=== PATIENT | male | born 1955 | race Hispanic/Latino ===

== ENCOUNTER 2017-06-16 13:02 | Emergency (ER) | payer BC ==
[2017-06-16 13:07] VITALS: TEMP 98.2
--- NOTE | 2017-06-16 13:43 | C.PDOC ---
History Of Present Illness 62 y/o male with a hx of HTN, c/o pain to the left leg for a few weeks. Pain started to the foot, the calf, then to the posterior thigh. Patient notes he cannot walk more than a few steps without pain. Foot and calf pain has improved. 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 Denies swelling, bruising, redness, or color change. No numbness to the thigh or back pain. Patient is a heavy smoker and a recovering alcoholic. Patient has a hx of HTN, was on meds in the past, but has not seen a Doctor for many years. Patient BP is high measured in Triage. Time Seen by Provider: 06/16/17 13:11 Chief Complaint (Nursing): Lower Extremity Problem/Injury History/Exam Limitations: no limitations Onset/Duration Of Symptoms: Days (Few weeks) Current Symptoms Are (Timing): Still Present Severity: Mild Recent travel outside of the [place]: No Additional History Per: Patient Past Medical History Reviewed: Historical Data, Nursing Documentation, Vital Signs Vital Signs: Last Vital Signs Temp 98.2 F 06/16/17 13:06 Pulse 72 06/16/17 15:52 Resp 21 06/16/17 15:52 BP 144/102 H 06/16/17 15:52 Pulse Ox 97 06/16/17 15:52 - Medical History PMH: HTN Family History: States: Unknown Family Hx - Social History Hx Alcohol Use: No (former) Hx Substance Use: No Review Of Systems Except As Marked, All Systems Reviewed And Found Negative. Constitutional: Negative for: Other (Injury or overuse of the left leg) Musculoskeletal: Positive for: Leg Pain (Left leg). Negative for: Back Pain, Other (Left leg swelling, redness, bruising, or color change.) Neurological: Negative for: Numbness Physical Exam - Physical Exam Appears: Non-toxic, No Acute Distress Skin: Warm, Dry Head: Atraumatic, Normacephalic Chest: Symmetrical Cardiovascular: Rhythm Regular, No Murmur Respiratory: Normal Breath Sounds, No Rales, No Rhonchi, No Wheezing Gastrointestinal/Abdominal: Soft, No Tenderness Back: No Vertebral Tenderness, Straight Leg Raising (Pain with straight leg raise on the left, relieved with knee flexion.) Extremity: Normal ROM (FROM left hip and knee), Tenderness (Tenderness to the hamstring muscle of the posterior left thigh.), Capillary Refill (<2secs), No Deformity Extremity: Bilateral: Normal Color And Temperature Pulses: Left Dorsalis Pedis: Normal, Right Dorsalis Pedis: Normal Neurological/Psych: Oriented x3, Normal Speech, Normal Cognition, Normal Motor, Normal Sensation, Normal Reflexes Gait: Steady ED Course And Treatment - Laboratory Results Result Diagrams: 06/16/17 13:40 06/16/17 13:40 Lab Interpretation: Normal ECG: Interpreted By Me ECG Rhythm: Sinus Rhythm ECG Interpretation: Normal O2 Sat by Pulse Oximetry: 98 (RA) Pulse Ox Interpretation: Normal Progress Note: 3:15 BP 159/105 after Clonidine 0.1mg. Patient remains comfortable on the stretcher. Reevaluation Time: 16:52 Reassessment Condition: Improved (BP now 153/96. Patient remains asymptomatic.) Medical Decision Making Medical Decision Making: Plans: * Blood labs * EKg * Catapres * IV fluids Disposition Counseled Patient/Family Regarding: Studies Performed, Diagnosis, Need For Followup, Rx Given - Disposition Referrals: [facility] [Outside] Disposition: HOME/ ROUTINE Disposition Time: 16:52 Condition: IMPROVED Prescriptions: Lisinopril [Zestril] 10 mg PO DAILY #90 tablet traMADol [Ultram] 50 mg PO TID PRN #10 tab PRN Reason: Pain, Severe (8-10) Instructions: Musculoskeletal Pain (ED), Hypertension (ED) Forms: [employer] (Mongolian) Print Language: SURINAMESE - Clinical Impression Clinical Impression: Hamstring muscle strain, Hypertension - Scribe Statement The provider has reviewed the documentation as recorded by the Scribjulius taylor All medical record entries made by the Scribe were at my direction and personally dictated by me. I have reviewed the chart and agree that the record accurately reflects my personal performance of the history, physical exam, medical decision making, and the department course for this patient. I have also personally directed, reviewed, and agree with the discharge instructions and disposition.
[2017-06-16 13:46] LABS: BASO % 0.5 % (0.0-2.0); EOS # 0.1 K/uL (0.0-0.7); EOS % 1.1 % (0.0-4.0); HEMATOCRIT 50.4 % (35.0-51.0); LYMPH # 1.6 K/uL (1.0-4.3); LYMPH % 20.8 % (20.0-40.0); MEAN CELL VOLUME 94.6 fL (80.0-94.0); MEAN CORPUSCULAR HEMOGLOBIN 32.2 pg (27.0-31.0); MEAN PLATELET VOLUME 8.7 fL (7.2-11.7); MONO # 0.6 K/uL (0.0-0.8); MONO % 7.6 % (0.0-10.0); NRBC % 0.1 % (0.0-2.0); RED CELL DISTRIBUTION WIDTH 13.9 % (11.5-14.5); WHITE BLOOD COUNT 7.9 K/uL (4.8-10.8)
[2017-06-16 13:57] LABS: CHLORIDE 104 mmol/L (98-107)
[2017-06-16 13:58] LABS: POTASSIUM 4.6 mmol/L (3.6-5.2); SODIUM 137 mmol/L (132-148)
[2017-06-16 14:00] LABS: ALB/GLOB RATIO 1.4 (1.0-2.1); ALKALINE PHOSPHATASE 55 U/L (38-126); ALT/SGPT 30 U/L (21-72); AST/SGOT 27 U/L (17-59); BILIRUBIN,TOTAL 0.8 mg/dL (0.2-1.3); BLOOD UREA NITROGEN 20 mg/dL (9-20); CARBON DIOXIDE 24 mmol/L (22-30); GFR AFRICAN-AMERICAN > 60; GLUCOSE,RANDOM 89 mg/dL (75-110); TOTAL PROTEIN 7.3 g/dL (6.3-8.3)
[2017-06-16 17:18] VITALS: BP 153/96; PULSE 68; RESP 20; O2SAT 97
--- NOTE | 2017-06-18 12:26 | CARD ---
APPROVED REPORT EKG Measurement Heart [id number] VT [id number] [id number] <Conclusion> Normal sinus rhythm Normal ECG
== END 2017-06-16 17:17 | disposition home or self-care (01) ==
LOC: C.ER 13:02
DX: S76.812A Strain of other specified muscles, fascia and tendons at thigh level, left thigh, initial encounter (principal); X58.XXXA Exposure to other specified factors, initial encounter; I10 Essential (primary) hypertension